=== PATIENT | female | born 1940 | race Caucasian/White ===

== ENCOUNTER 2019-03-09 15:34 | Outpatient (CLI) | payer MEDICARE ==
--- NOTE | 2019-03-09 17:12 | RAD ---
RIGHT SHOULDER THREE VIEWS: 03/09/19 INDICATION: Right shoulder pain after fall last week. COMPARISON: None. 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 Visualized right lung is clear. No acute frac ture or subluxation is evident. IMPRESSION: No acute osseous abnormality. POS: [facility]
== END 2019-03-09 15:35 | disposition home or self-care (01) ==
LOC: BURRAD 15:34
PROVIDERS: ATTEND Family Medicine
DX: M25.511 Pain in right shoulder (principal)

== ENCOUNTER 2022-06-09 10:42 | Outpatient (CLI) | payer MEDICARE | END 2022-06-09 10:43 | disposition home or self-care (01) | LOC: BURRAD 10:42 | PROVIDERS: ATTEND Physician Assistant | DX: M79.632 Pain in left forearm (principal); W19.XXXA Unspecified fall, initial encounter; S52.022A Displaced fracture of olecranon process without intraarticular extension of left ulna, initial encounter for closed fracture ==

== ENCOUNTER 2023-02-18 14:52 | Emergency (ER) | payer MEDICARE ==
[2023-02-18 15:51] LABS: Hemoglobin 15.3 g/dL (12.0-16.0); Mean Corpuscular HGB CONC 31.7 g/dL (32.0-36.0); Mean Corpuscular Hemoglobin 31.4 pg (27.0-31.0); Platelet Count 301 10x3/uL (130-400); RBC Distribution Width 11.6 % (11.5-14.5); Red Blood Cell (RBC) Count 4.88 mill/uL (4.20-5.40); White Blood Cell (WBC) Count 10.2 10x3/uL (4.8-10.8)
[2023-02-18 15:56] LABS: Bilirubin Negative (Negative); Blood, Urine Moderate (Negative); Clarity Cloudy (Clear); Glucose, Urine (Dipstick) Negative (Negative); Ketone, Urine Negative (Negative); Leukocyte Small (Negative); Nitrite Negative (Negative); Protein, Urine (Dipstick) 100 mg/dL (Neg-Trace); Urobilinogen 0.2 mg/dL (Less than 2); pH, Urine 5.5 (5.0-9.0)
[2023-02-18 16:06] LABS: ALT (SGPT) 18 U/L (8-55); AST (SGOT) 20 U/L (5-34); Albumin 4.1 g/dL (3.4-4.8); Alkaline Phosphatase 71 U/L (40-110); Anion Gap 19 mmol/L (10-20); BUN (Urea Nitrogen) 58 mg/dL (9.8-20.1); Bilirubin, Total 0.8 mg/dL (0.2-1.2); CAUTI Indications for Culture Alt mental st,lethar; CK (CPK) 125 U/L (29-168); Calc. Creatinine Clearance 0 mL/min (70-130); Calcium 10.2 mg/dL (7.8-10.44); Carbon Dioxide 26 mmol/L (23-31); Chloride 109 mmol/L (98-107); Estimated GFR 45; Globulin 3.3 g/dL (2.4-3.5); Glucose 89 mg/dL (83-110); Potassium 4.1 mmol/L (3.5-5.1); Protein, Total 7.4 g/dL (5.8-8.1); Sodium 150 mmol/L (136-145)
[2023-02-18 16:07] LABS: Bacteria/HPF 4+ HPF (None Seen); Urine Culture Reflex Yes Yes
[2023-02-18 16:10] LABS: #Basophils 0.1 thou/uL (0.0-0.2); #Eosinphils 0.1 thou/uL (0.0-0.7); #Lymphocytes 1.6 thou/uL (1.20-3.40); #Monocytes 0.8 thou/uL (0.11-0.59); #Neutrophils 7.6 thou/uL (1.40-6.50); %Basophils 1.1 % (0.0-1.0); %Eosinophils 1.2 % (0.0-10.0); %Lymphocytes 15.9 % (21.0-51.0); %Monocytes 7.3 % (0.0-10.0); %Neutrophils 74.6 % (42.0-75.0); Eosinophils 1 % (0-10); Lymphocytes 16 % (21-51); MDiff Complete? YES; Monocytes 7 % (0-10); Neutrophil 75 % (42-75); Platelet Adequacy Comment Appears Adequate
[2023-02-18 16:23] LABS: CKMB 4.7 ng/mL (0-6.6)
[2023-02-18] MEDS ORDERED: Sodium Chloride 0.9% 100 ML ONE (16:29)
[2023-02-18] MEDS ORDERED: cefTRIAXone (ROCEPHIN) 1 GM VIAL ONE (16:29)
== END 2023-02-18 18:43 | disposition short-term general hospital (02) ==
LOC: BURERS 14:52
DX: N39.0 Urinary tract infection, site not specified (principal); R41.82 Altered mental status, unspecified; R74.01 Elevation of levels of liver transaminase levels; J45.909 Unspecified asthma, uncomplicated; I10 Essential (primary) hypertension
CPT/HCPCS: 70450; 71045; 80053; 81001; 82550; 82553; 83880; 84484; 85025; 87077; 87086; 87186; 93005; 94760; 96365; J0696; J3490